=== PATIENT | male | born 1940 | race Caucasian/White ===

== ENCOUNTER 2016-10-08 18:46 | Emergency (ER) | payer OTHER ==
--- NOTE | 2016-10-08 22:42 | ED NURSING NOTES ---
Clinical Report - Nurses [facility] [address] [place] [address] 10/08/2016 18:47 [facility]: [id number] TRI[facility] Triage time 18:55. Acuity: LEVEL 3. Chief Complaint: LEFT LOWER EXTREMITY SWELLING. Location of symptoms- left ankle. Alert. No acute distress. ROSALINA COMA SCORE: Edison Coma Scale: 15- eyes open spontaneously (4); best verbal response- oriented x 4 (5); best motor response- obeys commands (6). --19:04 Gracia Cabrera R.N. 18:55 10/08/16. BP: 127/73. HR: 67. RR: 18. O2 saturation: 99% on room air. Temp: 97.8 F (oral). Pain level now: 01/07. --19:04 Gracia Cabrera R.N. Weight: 134.2 kg stated. Height/Length: 70 inches Per Patient. BMI: 42.5. --19:02 Gracia Cabrera R.N. Medications Aspirin Oral (Tablet 81 mg) 1 tablet, DAILY. Atorvastatin Calcium Oral 20 mg, daily. Carvedilol Oral (Tablet 25 mg) 2 tablets, BID. Effient Oral (Tablet 10 mg) 1 tablet, q day. Finasteride Oral 5 mg, daily. Furosemide Oral 20 mg, daily. Glipizide Oral 5 mg, daily. Lisinopril-Hydrochlorothiazide Oral (Tablet 20-25 mg) 1 tablet, twice a day. Oxycodone-Acetaminophen Oral 10/325 mg 2 tabs, 2x a day. Potassium Chloride Oral 10 meq. Tamsulosin HCl Oral (Capsule 0.4 mg) 1 capsule, daily. --18:58 Gracia Cabrera R.N. Medication/allergy information source: the patient. --19:04 Gracia Cabrera R.N. Allergies No Known Drug Allergy. --18:58 Gracia Cabrera R.N. History Arrived by private vehicle. Historian: patient. Accompanied by family. Primary physician ([facility]). No injury occurred. ( just woke up this morning and his ankle was swollen painful). SOCIAL HX: Former smoker. No alcohol use or drug use. LEARNING NEEDS ASSESSMENT: The learning needs assessment revealed no barriers. FALL RISK ASSESSMENT: Fall risk assessment completed. Risk factors identified include patient impairment of mobility. Fall interventions initiated. Patient placed in wheelchair. FUNCTIONAL ASSESSMENT: Functional assessment performed: independent with the activities of daily living. --19:04 Gracia Cabrera R.N. PROBLEMS: Angina. Diabetes Mellitus. UTI - Urinary Tract Infection. Hypovolemia. Immunizations. Dizziness. Hypoxia. Lifestyle / Substance Problems. Hypertension. COPD - Chronic Obstructive Pulmonary Disease. Dyspnea. Back Pain. Myocardial Infarction. --18:59 Gracia Cabrera R.N. ADDITIONAL SURGERIES: Cholecystectomy. Coronary Angioplasty. Gallbladder Surgery. Laparotomy. Pacemaker. Stent. --18:59 Gracia Cabrera R.N. Assessment GENERAL / NEURO / PSYCH: Alert. Oriented X 4. Appears in no acute distress. Patient appears calm and cooperative. RESPIRATORY: Respirations not labored. SKIN: Skin is warm and dry. --19:04 Gracia Cabrera R.N. Interventions ID band on patient. To waiting room. --19:04 Gracia Cabrera R.N. PHYSICAL ASSESSMENT 19:33 10/08/16. To room via wheelchair. GENERAL / NEURO / PSYCH: Oriented X 4. Alert. Appears in no acute distress. EXTREMITIES: 1+ edema of the right lower extremity involving the foot and ankle. Extremity pulses are within normal limits. Extremities exhibit normal ROM. Left foot. ( Patient states his foot was numb when he was sitting in the car.). SKIN: Skin intact. Skin is warm and dry. --19:33 Tania Espinal R.N. NURSING PROGRESS NOTES 19:34 10/08/16. Two patient identifiers checked. Call light placed in reach. Side rails up x 2. Bed placed in lowest position. Brakes of bed on. Patient ready for evaluation- chart flagged and notification provided. --19:34 Tania Espinal R.N. ( finger stick glucose 175). --19:43 Tania Espinal R.N. ( Patient's feet cleaned with warm water and washcloth.). --19:45 Tania Espinal R.N. 20:55 10/08/16. BP: 123/40 (large adult cuff) taken on the left arm, while lying. HR: 66. RR: 16. O2 saturation: 97%. Temp: 98 F. Pain level now: 04/09. Additional comments: patient states pain is 10/10 when he stands on his foot. . --21:02 Tania Espinal R.N. 21:33. The patient is resting quietly. GENERAL / NEURO / PSYCH: Alert. Oriented X 4. RESPIRATORY: No respiratory distress. SKIN: Skin is warm and dry. Call light placed in reach. ( Patient given additional blankets. Reports no needs at this time.). --21:51 Tania Espinal R.N. ( Patient reports no needs at this time. US at bedside.). --22:21 Tania Espinal R.N. 22:47 10/08/2016 Hydrocodone-APAP (Hydrocodone-Acetaminophen) PO 5/325 mg Tablets 1 tab given. Allergies verified, confirmed 5 rights and sedative warning given to the patient and patient's family. --22:52 Tania Espinal R.N. DISPOSITION / DISCHARGE 22:55. No learning barriers present. Discharge instructions provided and reviewed with the patient and family. Reviewed warnings. Reviewed medication(s). Treatments reviewed. Reviewed referrals. Follow up contact number. Patient verbalized understanding. Written instructions provided in Emirati. The patient was discharged home and accompanied by family. He left the Emergency Department ambulatory and via private vehicle. Family member driving. --23:12 Tania Espinal R.N. 22:06 10/08/16. BP: 122/49 taken on the left arm, while lying. HR: 66. RR: 18. O2 saturation: 98%. Temp: deferred. Pain level now: 05/10. --23:13 Tania Espinal R.N. Locked/Released at 10/09/2016 0:11 by Tania Espinal R.N.
--- NOTE | 2016-10-08 22:42 | ED CLINICAL REPORT ---
Clinical Report - Physicians/Mid Levels [facility] [address] [place] [address] 10/08/2016 18:47 [id number] Time Seen: 20:14; initial patient contact, initial documentation, patient care assumed. Arrived- By private vehicle. Historian- patient and daughter. HISTORY OF PRESENT ILLNESS Chief Complaint: LOWER EXTREMITY PAIN and SWELLING. Not relieved by anything- worsened by standing and walking. This started today and is still present. It was abrupt in onset. The quality is noted to be "pain". No radiation. Symptoms located in the area of the left ankle. The patient has had swelling, but not had redness. No difficulty walking. No bladder dysfunction, bowel dysfunction or motor loss. ( woke up with ankle pain and swelling, denies any injury/trauma). Patient denies an injury. Similar symptoms previously: None. Recent medical care: Not recently seen/assessed. REVIEW OF SYSTEMS No chest pain or difficulty breathing. All systems otherwise negative, except as recorded above. PAST HISTORY See nurses notes. ( PROBLEMS: Angina. Diabetes Mellitus. UTI - Urinary Tract Infection. Hypovolemia. Immunizations. Dizziness. Hypoxia. Lifestyle / Substance Problems. Hypertension. COPD - Chronic Obstructive Pulmonary Disease. Dyspnea. Back Pain. Myocardial Infarction. --18:59 Gracia Cabrera R.N. ADDITIONAL SURGERIES: Cholecystectomy. Coronary Angioplasty. Gallbladder Surgery. Laparotomy. Pacemaker. Stent. --18:59 Gracia Cabrera R.N.). SOCIAL HISTORY Former smoker. No alcohol use or drug use. No recent travel. Is a local resident. FAMILY HISTORY Negative. ADDITIONAL NOTES The nursing notes have been reviewed with agreement regarding the chief complaint, HPI, ROS, PMH and patient medications and allergies. PHYSICAL EXAM Vital Signs: 10/08/2016 18:55 BP: 127/73. HR: 67. RR: 18. O2 saturation: 99%. Temp: 97.8 F. Pain level now: 10/10. Have been reviewed as normal and appear to be correct. Appearance: Alert. Oriented X3. No acute distress. Eyes: Pupils equal, round and reactive to light. Eyes normal inspection. Neck: Normal inspection. Neck supple. CVS: Normal heart rate and rhythm. Heart sounds normal. Respiratory: No respiratory distress. Breath sounds normal. Skin: Skin intact. Skin warm and dry. Normal skin color. Normal skin turgor. Extremities: Left ankle: mild tenderness and swelling localized to the lateral malleolus. Neurovascular intact distally. No ligamentous laxity present. No joint effusion. No erythema, laceration, abrasion, ecchymosis or puncture wound. No foreign body or deformity. No limitation in ROM. Lower extremities exhibit normal ROM. No lower extremity edema. No signs of infection involving the lower extremities. No lower extremity edema. No calf tenderness. (pt's feet very dirty, caked on dirt, toenails extremely long with fungus present, foul body odor). Extremities otherwise negative. Neuro, Vascular and Tendons: Lower extremity capillary refill not prolonged. Gait: Abnormal gait. Gait not tested due to pain. Neuro: Oriented X 3. No motor deficit. No sensory deficit. LABS, X-RAYS, AND EKG X-Rays: X-rays are normal and reveal no acute disease (no acute, lots arthritis and degerative changes, calcaneous spur). Left ankle negative. The X-rays were independently viewed by me. PROGRESS AND PROCEDURES Course of Care: pt informed that he needed some good foot care, preferably by podiatry, expressed concerns over long nails and poor hygiene and concerns for dm neuropathy xrays discussed, and pt aware that I ordered US to r/o dvt. Patient and family counseled in person regarding the patient's stable condition, test results and diagnosis. Differential Diagnosis: I considered fracture, stress fracture, bone spur, multiple myeloma, gout, pseudogout, sprain, soft tissue injury, myositis, fasciitis, tendonitis, bursitis and deep venous thrombosis as a possible cause of lower extremity pain in this patient. This is a partial list of diagnoses considered. (dm neuropathy, athletes feet, onchymosis). Above considerations are based on history, physical exam, reassessment, X-Ray data and other information. Differential diagnosis was discussed with patient and patient's family. Disposition: Discharged home in good and unchanged condition. Condition: good and stable. CLINICAL IMPRESSION Acute polyarthritis of the left foot due to osteoarthritis. INSTRUCTIONS Warnings: GENERAL WARNINGS: Return or contact your physician immediately if your condition worsens or changes unexpectedly, if not improving as expected, or if other problems arise. Specifically return if problem worsens. Prescription Medications: Naproxen 500 mg tablets: take 1 orally every 12 hours as needed for pain. Dispense twenty (20). No refills. [place] 5 mg / 325 mg tablets: take 1 orally every 6 hours as needed for pain. Dispense five (5). No refill. Follow-up: Follow up with your doctor in about one week as needed. Call for an appointment. Summary of care provided to patient and family. Understanding of the discharge instructions verbalized by patient. Follow-up with: Tarun Barrow DPM, Podiatry, , [facility], [address] [place] [address], [address], [place] [address]; Varghese Nuñez DPM, Podiatry, , [address] [place] [address]. [address], [place] [address] Follow up in about three days even if well. Call for an appointment. Summary of care provided to patient and family. (Electronically signed by Neli Jarquin A.R.N.P. 10/09/2016 13:26)
--- NOTE | 2016-10-08 22:42 | ED CLINICAL REPORT ---
Clinical Report - Physicians/Mid Levels [facility] [address] [place] [address] 10/08/2016 18:47 [id number] Time Seen: 20:14; initial patient contact, initial documentation, patient care assumed. Arrived- By private vehicle. Historian- patient and daughter. HISTORY OF PRESENT ILLNESS Chief Complaint: LOWER EXTREMITY PAIN and SWELLING. Not relieved by anything- worsened by standing and walking. This started today and is still present. It was abrupt in onset. The quality is noted to be "pain". No radiation. Symptoms located in the area of the left ankle. The patient has had swelling, but not had redness. No difficulty walking. No bladder dysfunction, bowel dysfunction or motor loss. ( woke up with ankle pain and swelling, denies any injury/trauma). Patient denies an injury. Similar symptoms previously: None. Recent medical care: Not recently seen/assessed. REVIEW OF SYSTEMS No chest pain or difficulty breathing. All systems otherwise negative, except as recorded above. PAST HISTORY See nurses notes. ( PROBLEMS: Angina. Diabetes Mellitus. UTI - Urinary Tract Infection. Hypovolemia. Immunizations. Dizziness. Hypoxia. Lifestyle / Substance Problems. Hypertension. COPD - Chronic Obstructive Pulmonary Disease. Dyspnea. Back Pain. Myocardial Infarction. --18:59 Gracia Cabrera R.N. ADDITIONAL SURGERIES: Cholecystectomy. Coronary Angioplasty. Gallbladder Surgery. Laparotomy. Pacemaker. Stent. --18:59 Gracia Cabrera R.N.). SOCIAL HISTORY Former smoker. No alcohol use or drug use. No recent travel. Is a local resident. FAMILY HISTORY Negative. ADDITIONAL NOTES The nursing notes have been reviewed with agreement regarding the chief complaint, HPI, ROS, PMH and patient medications and allergies. PHYSICAL EXAM Vital Signs: 10/08/2016 18:55 BP: 127/73. HR: 67. RR: 18. O2 saturation: 99%. Temp: 97.8 F. Pain level now: 10/10. Have been reviewed as normal and appear to be correct. Appearance: Alert. Oriented X3. No acute distress. Eyes: Pupils equal, round and reactive to light. Eyes normal inspection. Neck: Normal inspection. Neck supple. CVS: Normal heart rate and rhythm. Heart sounds normal. Respiratory: No respiratory distress. Breath sounds normal. Skin: Skin intact. Skin warm and dry. Normal skin color. Normal skin turgor. Extremities: Left ankle: mild tenderness and swelling localized to the lateral malleolus. Neurovascular intact distally. No ligamentous laxity present. No joint effusion. No erythema, laceration, abrasion, ecchymosis or puncture wound. No foreign body or deformity. No limitation in ROM. Lower extremities exhibit normal ROM. No lower extremity edema. No signs of infection involving the lower extremities. No lower extremity edema. No calf tenderness. (pt's feet very dirty, caked on dirt, toenails extremely long with fungus present, foul body odor). Extremities otherwise negative. Neuro, Vascular and Tendons: Lower extremity capillary refill not prolonged. Gait: Abnormal gait. Gait not tested due to pain. Neuro: Oriented X 3. No motor deficit. No sensory deficit. LABS, X-RAYS, AND EKG X-Rays: X-rays are normal and reveal no acute disease (no acute, lots arthritis and degerative changes, calcaneous spur). Left ankle negative. The X-rays were independently viewed by me. PROGRESS AND PROCEDURES Course of Care: pt informed that he needed some good foot care, preferably by podiatry, expressed concerns over long nails and poor hygiene and concerns for dm neuropathy xrays discussed, and pt aware that I ordered US to r/o dvt. Patient and family counseled in person regarding the patient's stable condition, test results and diagnosis. Differential Diagnosis: I considered fracture, stress fracture, bone spur, multiple myeloma, gout, pseudogout, sprain, soft tissue injury, myositis, fasciitis, tendonitis, bursitis and deep venous thrombosis as a possible cause of lower extremity pain in this patient. This is a partial list of diagnoses considered. (dm neuropathy, athletes feet, onchymosis). Above considerations are based on history, physical exam, reassessment, X-Ray data and other information. Differential diagnosis was discussed with patient and patient's family. Disposition: Discharged home in good and unchanged condition. Condition: good and stable. CLINICAL IMPRESSION Acute polyarthritis of the left foot due to osteoarthritis. INSTRUCTIONS Warnings: GENERAL WARNINGS: Return or contact your physician immediately if your condition worsens or changes unexpectedly, if not improving as expected, or if other problems arise. Specifically return if problem worsens. Prescription Medications: Naproxen 500 mg tablets: take 1 orally every 12 hours as needed for pain. Dispense twenty (20). No refills. [place] 5 mg / 325 mg tablets: take 1 orally every 6 hours as needed for pain. Dispense five (5). No refill. Follow-up: Follow up with your doctor in about one week as needed. Call for an appointment. Summary of care provided to patient and family. Understanding of the discharge instructions verbalized by patient. Follow-up with: Tarun Barrow DPM, Podiatry, , [facility], [address] [place] [address], [address], [place] [address]; Varghese Nuñez DPM, Podiatry, , [address] [place] [address]. [address], [place] [address] Follow up in about three days even if well. Call for an appointment. Summary of care provided to patient and family. (Electronically signed by Neli Jarquin A.R.N.P. 10/09/2016 13:26)
--- NOTE | 2016-10-08 22:42 | ED ORDER SUMMARY ---
..... Patient: MELQUIADES PERALES OrderSheet [facility] VisitID: [id number] [place] [address] 75y, M Registration Date/Time: 10/08/2016 ORDER SHEET Weight: 134.2 kg (stated) Allergies: No Known Drug Allergy GENERAL ORDERS: Ankle 3 or 4V Left Urgent (20:52 10/08/2016 HBivens A.R.N.P.) (Ack 20:53 CHagerty ER [place]) (21:02 RMarsden R.N.) US Venous Left Urgent (21:18 10/08/2016 HBivens A.R.N.P.) (Ack 21:22 CHagerty ER [place]) (22:38 RMarsden R.N.) Crutches (22:52 10/08/2016 RMarsden R.N. verbal order read back to Estrada Dominguez) (Ack 22:52 RMarsden R.N.) (23:11 RMarsden R.N.) MEDICATION ORDERS: Hydrocodone-APAP PO 5/325 mg (NOW, HIGH ALERT MEDICATION) (22:44 10/08/2016 HBivens A.R.N.P.) (22:52 RMarsden R.N.) IV FLUIDS: ORDER SHEET NOTES: [Electronically signed by Tania Espinal R.N. (00:11 10/09/2016)] [Electronically signed by Neli JarquinRNikkyN.PNikky (13:26 10/09/2016)] [Electronically locked/signed by Tania Espinal R.N. (00:11 10/09/2016)]
--- NOTE | 2016-10-08 22:42 | ED ORDER SUMMARY ---
..... Patient: MELQUIADES PERALES OrderSheet [facility] VisitID: [id number] [place] [address] 75y, M Registration Date/Time: 10/08/2016 ORDER SHEET Weight: 134.2 kg (stated) Allergies: No Known Drug Allergy GENERAL ORDERS: Ankle 3 or 4V Left Urgent (20:52 10/08/2016 HBivens A.R.N.P.) (Ack 20:53 CHagerty ER [employer] Specialist) (21:02 RMarsden R.N.) US Venous Left Urgent (21:18 10/08/2016 HBivens A.R.N.P.) (Ack 21:22 CHagerty ER [employer] Specialist) (22:38 RMarsden R.N.) Crutches (22:52 10/08/2016 RMarsden R.N. verbal order read back to Estrada Dominguez) (Ack 22:52 RMarsden R.N.) (23:11 RMarsden R.N.) MEDICATION ORDERS: Hydrocodone-APAP PO 5/325 mg (NOW, HIGH ALERT MEDICATION) (22:44 10/08/2016 HBivens A.R.N.P.) (22:52 RMarsden R.N.) IV FLUIDS: ORDER SHEET NOTES: [Electronically signed by Tania Espinal R.N. (00:11 10/09/2016)] [Electronically signed by Neli JarquinRNikkyN.PNikky (13:26 10/09/2016)] [Electronically locked/signed by Tania Espinal R.N. (00:11 10/09/2016)]
--- NOTE | 2016-10-09 00:54 | DIAGNOSTIC IMAGING REPORT ---
PROCEDURE: US VENOUS - LEFT EXT INDICATION: SWELLING TECHNIQUE: Color Doppler duplex imaging of the deep and superficial venous system without and with compression. COMPARISON: None. FINDINGS: Deep and superficial venous system of the left lower extremity is within normal limits. There is no evidence of deep vein thrombosis or superficial thrombophlebitis. IMPRESSION: 1. Negative venous ultrasound of the left lower extremity.
--- NOTE | 2016-10-09 01:00 | DIAGNOSTIC IMAGING REPORT ---
PROCEDURE: XR ANKLE 3 OR 4 VIEWS - LEFT INDICATION: PAIN TECHNIQUE: Four views. COMPARISON: None. FINDINGS: Moderate to severe degenerative change of the left ankle mortise joint with peripheral osteophytes. Mild to moderate joint space narrowing. There are large plantar and Achilles spurs of the left os calcis (most likely incidental finding). No evidence of an acute process or fracture. IMPRESSION: 1. 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 2. Large Achilles and plantar spurs of the left calcis. 3. No evidence of acute process or fracture.
--- NOTE | 2016-10-09 13:27 | ED MED RECONCILIATION SUMMARY ---
Patient: MELQUIADES PERALES Medication Reconciliation Report [facility] VisitID: [id number] [address] [place] [address] 75y, M Registration Date/Time: 10/08/2016 Weight: 134.2 kg Height/Length: 70 in. BMI: 42.5 ALLERGIES: No Known Drug Allergy The patient's Home Medications are listed below: THE FOLLOWING MEDICATIONS NEED TO BE RECONCILED: Aspirin Oral (81 mg) 1 tablet, DAILY Atorvastatin Calcium Oral 20 mg, daily Carvedilol Oral (25 mg) 2 tablets, BID Effient Oral (10 mg) 1 tablet, q day Finasteride Oral 5 mg, daily Furosemide Oral 20 mg, daily Glipizide Oral 5 mg, daily Lisinopril-Hydrochlorothiazide Oral (20-25 mg) 1 tablet, twice a day Oxycodone-Acetaminophen Oral 10/325 mg 2 tabs, 2x a day Potassium Chloride Oral 10 meq Tamsulosin HCl Oral (0.4 mg) 1 capsule, daily The source(s) of the original Home Medication information: patient The following Medications were given to the patient in the Emergency Department: Hydrocodone-APAP [PO] PO 1 tab, administered: 10/08/2016 10:47:00 PM The following Medications were prescribed to the patient: Naproxen 500 mg tablets: take 1 orally every 12 hours as needed for pain. Dispense twenty (20). No refills. -- Neli Jarquin A.R.N.P. [place] 5 mg / 325 mg tablets: take 1 orally every 6 hours as needed for pain. Dispense five (5). No refill. -- Neli Jarquin A.R.N.P.
--- NOTE | 2016-10-09 13:27 | ED DISCHARGE INSTRUCTIONS ---
Patient: MELQUIADES PERALES General Instructions 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 INSTRUCTIONS Warnings: GENERAL WARNINGS: Return or contact your physician immediately if your condition worsens or changes unexpectedly, if not improving as expected, or if other problems arise. Specifically return if problem worsens. Prescription Medications: Naproxen 500 mg tablets: take 1 orally every 12 hours as needed for pain. Dispense twenty (20). No refills. [place]elwood 5 mg / 325 mg tablets: take 1 orally every 6 hours as needed for pain. Dispense five (5). No refill. Follow-up: Follow up with your doctor in about one week as needed. Call for an appointment. Summary of care provided to patient and family. Understanding of the discharge instructions verbalized by patient. Follow-up with: Tarun Barrow DPM, Podiatry, , [facility], [address] [place] [address], [address], [place] [address]; Varghese Nuñez DPM, Podiatry, [phone], [address], [place] [address] Follow up in about three days even if well. Call for an appointment. Summary of care provided to patient and family. ADDITIONAL INFORMATION Osteoarthritis Osteoarthritis (also called Degenerative Joint Disease) is the most common form of arthritis in adults over 50. It is not the same as Rheumatoid Arthritis. The exact cause is not known but may be related to excess wear and tear on the joint over a long period of time. Prior injury to that joint, or repeated stress on a joint can also cause this type of arthritis. Osteoarthritis most often affects the hands, knees, spine and hips (in that order). The most common symptoms are joint stiffness, pain and swelling. Home Care: When a joint is more sore than usual, rest that joint for a day or two. Heat is very helpful. This can be provided by taking hot baths, applying a heating pad for up to 30 minutes at a time. Because symptoms are usually worse in the morning, many patients like to take a hot bath just after awakening to relax the muscle and soothe the joints. Exercise is the most important part of home treatment for osteoarthritis. This prevents the muscles and ligaments around the joint from becoming weak and helps maintain the full range of joint motion. This limits further damage to the joint. If you are overweight, this puts a lot of extra strain on weight-bearing joints of the lower back, hips, knees, feet and ankles. Losing weight will improve your arthritis symptoms in these joints. Talk to your doctor about a safe and effective weight loss program for yourself. Anti-inflammatory medicine such as ibuprofen (Advil, Motrin) or naproxen (Aleve) is often used to treat this condition. If this alone is not helping, your doctor may prescribe a stronger medicine. If narcotic pain medicines have been prescribed, they should be used in addition to anti-inflammatory drugs and only for severe pain. Follow Up with your doctor as advised by our staff. Get Prompt Medical Attention if any of the following occur: Redness or swelling of a painful joint Fever of 100.4F (38C) or higher, or as directed by your healthcare provider Worsening joint pain Arthralgia Arthralgia is the term for pain in or around the joint. It is not a disease but a symptom. This may involve one or more joints. Sometimes arthralgias move from joint to joint. There are many causes for joint pain. These include: Injury Osteoarthritis (from wearing out of the joint surface) Rheumatoid arthritis (an autoimmune disease) Gout (inflammation of the joint due to crystals in the joint fluid) Infection inside the joint Bursitis (inflammation of the fluid-filled sacs around the joint) Lupus and other collagen-vascular disease Home Care: Rest the involved joint(s) until your symptoms improve. You may use acetaminophen (Tylenol) or ibuprofen (Motrin, Advil) to control pain, unless another pain medicine was prescribed. [NOTE: If you have chronic liver or kidney disease or ever had a stomach ulcer or GI bleeding, talk with your doctor before using these medicines.] Follow Up with your doctor or as advised by our staff. [NOTE: If you had an X-ray it will be reviewed by a specialist. You will be notified of any new findings that may affect your care.] Return Promptly or contact your doctor if any of the following occurs: Pain increases Pain moves to other joints New rash appears Fever of 100.4F (38C) or higher, or as directed by your healthcare provider Naproxen Sodium Oral tablet What is this medicine? NAPROXEN (na PROX en) is a non-steroidal anti-inflammatory drug (NSAID). It is used to reduce swelling and to treat pain. This medicine may be used for dental pain, headache, or painful monthly periods. It is also used for painful joint and muscular problems such as arthritis, tendinitis, bursitis, and gout. How should I use this medicine? Take this medicine by mouth with a glass of water. Follow the directions on the prescription label. Take it with food if your stomach gets upset. Try to not lie down for at least 10 minutes after you take it. Take your medicine at regular intervals. Do not take your medicine more often than directed. Long-term, continuous use may increase the risk of heart attack or stroke. A special MedGuide will be given to you by the pharmacist with each prescription and refill. Be sure to read this information carefully each time. Talk to your gas distribution plant operator regarding the use of this medicine in children. Special care may be needed. What side effects may I notice from receiving this medicine? Side effects that you should report to your doctor or health reservoir caretaker as soon as possible: black or bloody stools, blood in the urine or vomit blurred vision chest pain difficulty breathing or wheezing nausea or vomiting severe stomach pain skin rash, skin redness, blistering or peeling skin, hives, or itching slurred speech or weakness on one side of the body swelling of eyelids, throat, lips unexplained weight gain or swelling unusually weak or tired yellowing of eyes or skin Side effects that usually do not require medical attention (report to your doctor or health reservoir caretaker if they continue or are bothersome): constipation headache heartburn What may interact with this medicine? alcohol aspirin cidofovir diuretics lithium methotrexate other drugs for inflammation like ketorolac or prednisone pemetrexed probenecid warfarin What if I miss a dose? If you miss a dose, take it as soon as you can. If it is almost time for your next dose, take only that dose. Do not take double or extra doses. Where should I keep my medicine? Keep out of the reach of children. Store at room temperature between 15 and 30 degrees C (59 and 86 degrees F). Keep container tightly closed. Throw away any unused medicine after the expiration date. What should I tell my health care provider before I take this medicine? They need to know if you have any of these conditions: asthma cigarette smoker drink more than 3 alcohol containing drinks a day heart disease or circulation problems such as heart failure or leg edema (fluid retention) high blood pressure kidney disease liver disease stomach bleeding or ulcers an unusual or allergic reaction to naproxen, aspirin, other NSAIDs, other medicines, foods, dyes, or preservatives or trying to get breast-feeding What should I watch for while using this medicine? Tell your doctor or health reservoir caretaker if your pain does not get better. Talk to your doctor before taking another medicine for pain. Do not treat yourself. This medicine does not prevent heart attack or stroke. In fact, this medicine may increase the chance of a heart attack or stroke. The chance may increase with longer use of this medicine and in people who have heart disease. If you take aspirin to prevent heart attack or stroke, talk with your doctor or health reservoir caretaker. Do not take other medicines that contain aspirin, ibuprofen, or naproxen with this medicine. Side effects such as stomach upset, nausea, or ulcers may be more likely to occur. Many medicines available without a prescription should not be taken with this medicine. This medicine can cause ulcers and bleeding in the stomach and intestines at any time during treatment. Do not smoke cigarettes or drink alcohol. These increase irritation to your stomach and can make it more susceptible to damage from this medicine. Ulcers and bleeding can happen without warning symptoms and can cause . You may get drowsy or dizzy. Do not drive, use machinery, or do anything that needs mental alertness until you know how this medicine affects you. Do not stand or sit up quickly, especially if you are an older patient. This reduces the risk of dizzy or fainting spells. This medicine can cause you to bleed more easily. Try to avoid damage to your teeth and gums when you brush or floss your teeth. Hydrocodone Bitartrate, Acetaminophen Oral tablet What is this medicine? ACETAMINOPHEN; HYDROCODONE (a set a BRUNO theron fen; zander droe KOE done) is a pain reliever. It is used to treat mild to moderate pain. How should I use this medicine? Take this medicine by mouth. Swallow it with a full glass of water. Follow the directions on the prescription label. If the medicine upsets your stomach, take the medicine with food or milk. Do not take more than you are told to take. Talk to your gas distribution plant operator regarding the use of this medicine in children. This medicine is not approved for use in children. What side effects may I notice from receiving this medicine? Side effects that you should report to your doctor or health reservoir caretaker as soon as possible: allergic reactions like skin rash, itching or hives, swelling of the face, lips, or tongue breathing problems confusion feeling faint or lightheaded, falls stomach pain yellowing of the eyes or skin Side effects that usually do not require medical attention (report to your doctor or health reservoir caretaker if they continue or are bothersome): nausea, vomiting stomach upset What may interact with this medicine? alcohol antihistamines isoniazid medicines for depression, anxiety, or psychotic disturbances medicines for sleep muscle relaxants naltrexone narcotic medicines (opiates) for pain phenobarbital ritonavir tramadol What if I miss a dose? If you miss a dose, take it as soon as you can. If it is almost time for your next dose, take only that dose. Do not take double or extra doses. Where should I keep my medicine? Keep out of the reach of children. This medicine can be abused. Keep your medicine in a safe place to protect it from theft. Do not share this medicine with anyone. Selling or giving away this medicine is dangerous and against the law. Store at room temperature between 15 and 30 degrees C (59 and 86 degrees F). Protect from light. Keep container tightly closed. Throw away any unused medicine after the expiration date. Discard unused medicine and used packaging carefully. Pets and children can be harmed if they find used or lost packages. What should I tell my health care provider before I take this medicine? They need to know if you have any of these conditions: brain tumor Crohn's disease, inflammatory bowel disease, or ulcerative colitis drink more than 3 alcohol-containing drinks per day drug abuse or addiction head injury heart or circulation problems kidney disease or problems going to the bathroom liver disease lung disease, asthma, or breathing problems an unusual or allergic reaction to acetaminophen, hydrocodone, other opioid analgesics, other medicines, foods, dyes, or preservatives or trying to get breast-feeding What should I watch for while using this medicine? Tell your doctor or health reservoir caretaker if your pain does not go away, if it gets worse, or if you have new or a different type of pain. You may develop tolerance to the medicine. Tolerance means that you will need a higher dose of the medicine for pain relief. Tolerance is normal and is expected if you take the medicine for a long time. Do not suddenly stop taking your medicine because you may develop a severe reaction. Your body becomes used to the medicine. This does NOT mean you are addicted. Addiction is a behavior related to getting and using a drug for a non-medical reason. If you have pain, you have a medical reason to take pain medicine. Your doctor will tell you how much medicine to take. If your doctor wants you to stop the medicine, the dose will be slowly lowered over time to avoid any side effects. You may get drowsy or dizzy when you first start taking the medicine or change doses. Do not drive, use machinery, or do anything that may be dangerous until you know how the medicine affects you. Stand or sit up slowly. There are different types of narcotic medicines (opiates) for pain. If you take more than one type at the same time, you may have more side effects. Give your health care provider a list of all medicines you use. Your doctor will tell you how much medicine to take. Do not take more medicine than directed. Call emergency for help if you have problems breathing. The medicine will cause constipation. Try to have a bowel movement at least every 2 to 3 days. If you do not have a bowel movement for 3 days, call your doctor or health reservoir caretaker. Too much acetaminophen can be very dangerous. Do not take Tylenol (acetaminophen) or medicines that contain acetaminophen with this medicine. Many non-prescription medicines contain acetaminophen. Always read the labels carefully. You have been given the following additional information: Osteoarthritis Arthralgia Naproxen Sodium Oral tablet Hydrocodone Bitartrate, Acetaminophen Oral tablet (Electronically signed by Neli Jarquin A.R.N.P. 10/09/2016 13:26)
--- NOTE | 2016-10-09 13:27 | ED DISCHARGE INSTRUCTIONS ---
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 INSTRUCTIONS Warnings: GENERAL WARNINGS: Return or contact your physician immediately if your condition worsens or changes unexpectedly, if not improving as expected, or if other problems arise. Specifically return if problem worsens. Prescription Medications: Naproxen 500 mg tablets: take 1 orally every 12 hours as needed for pain. Dispense twenty (20). No refills. [place] 5 mg / 325 mg tablets: take 1 orally every 6 hours as needed for pain. Dispense five (5). No refill. Follow-up: Follow up with your doctor in about one week as needed. Call for an appointment. Summary of care provided to patient and family. Understanding of the discharge instructions verbalized by patient. Follow-up with: Tarun Barrow DPM, Podiatry, , [facility], [address] [place] [address], [address], [place] [address]; Varghese Nuñez DPM, Podiatry, [phone], [place] [address] Follow up in about three days even if well. Call for an appointment. Summary of care provided to patient and family. ADDITIONAL INFORMATION Osteoarthritis Osteoarthritis (also called Degenerative Joint Disease) is the most common form of arthritis in adults over 50. It is not the same as Rheumatoid Arthritis. The exact cause is not known but may be related to excess wear and tear on the joint over a long period of time. Prior injury to that joint, or repeated stress on a joint can also cause this type of arthritis. Osteoarthritis most often affects the hands, knees, spine and hips (in that order). The most common symptoms are joint stiffness, pain and swelling. Home Care: When a joint is more sore than usual, rest that joint for a day or two. Heat is very helpful. This can be provided by taking hot baths, applying a heating pad for up to 30 minutes at a time. Because symptoms are usually worse in the morning, many patients like to take a hot bath just after awakening to relax the muscle and soothe the joints. Exercise is the most important part of home treatment for osteoarthritis. This prevents the muscles and ligaments around the joint from becoming weak and helps maintain the full range of joint motion. This limits further damage to the joint. If you are overweight, this puts a lot of extra strain on weight-bearing joints of the lower back, hips, knees, feet and ankles. Losing weight will improve your arthritis symptoms in these joints. Talk to your doctor about a safe and effective weight loss program for yourself. Anti-inflammatory medicine such as ibuprofen (Advil, Motrin) or naproxen (Aleve) is often used to treat this condition. If this alone is not helping, your doctor may prescribe a stronger medicine. If narcotic pain medicines have been prescribed, they should be used in addition to anti-inflammatory drugs and only for severe pain. Follow Up with your doctor as advised by our staff. Get Prompt Medical Attention if any of the following occur: Redness or swelling of a painful joint Fever of 100.4F (38C) or higher, or as directed by your healthcare provider Worsening joint pain Arthralgia Arthralgia is the term for pain in or around the joint. It is not a disease but a symptom. This may involve one or more joints. Sometimes arthralgias move from joint to joint. There are many causes for joint pain. These include: Injury Osteoarthritis (from wearing out of the joint surface) Rheumatoid arthritis (an autoimmune disease) Gout (inflammation of the joint due to crystals in the joint fluid) Infection inside the joint Bursitis (inflammation of the fluid-filled sacs around the joint) Lupus and other collagen-vascular disease Home Care: Rest the involved joint(s) until your symptoms improve. You may use acetaminophen (Tylenol) or ibuprofen (Motrin, Advil) to control pain, unless another pain medicine was prescribed. [NOTE: If you have chronic liver or kidney disease or ever had a stomach ulcer or GI bleeding, talk with your doctor before using these medicines.] Follow Up with your doctor or as advised by our staff. [NOTE: If you had an X-ray it will be reviewed by a specialist. You will be notified of any new findings that may affect your care.] Return Promptly or contact your doctor if any of the following occurs: Pain increases Pain moves to other joints New rash appears Fever of 100.4F (38C) or higher, or as directed by your healthcare provider Naproxen Sodium Oral tablet What is this medicine? NAPROXEN (na PROX en) is a non-steroidal anti-inflammatory drug (NSAID). It is used to reduce swelling and to treat pain. This medicine may be used for dental pain, headache, or painful monthly periods. It is also used for painful joint and muscular problems such as arthritis, tendinitis, bursitis, and gout. How should I use this medicine? Take this medicine by mouth with a glass of water. Follow the directions on the prescription label. Take it with food if your stomach gets upset. Try to not lie down for at least 10 minutes after you take it. Take your medicine at regular intervals. Do not take your medicine more often than directed. Long-term, continuous use may increase the risk of heart attack or stroke. A special MedGuide will be given to you by the pharmacist with each prescription and refill. Be sure to read this information carefully each time. Talk to your brake operator heavy duty regarding the use of this medicine in children. Special care may be needed. What side effects may I notice from receiving this medicine? Side effects that you should report to your doctor or health pet care attendant as soon as possible: black or bloody stools, blood in the urine or vomit blurred vision chest pain difficulty breathing or wheezing nausea or vomiting severe stomach pain skin rash, skin redness, blistering or peeling skin, hives, or itching slurred speech or weakness on one side of the body swelling of eyelids, throat, lips unexplained weight gain or swelling unusually weak or tired yellowing of eyes or skin Side effects that usually do not require medical attention (report to your doctor or health pet care attendant if they continue or are bothersome): constipation headache heartburn What may interact with this medicine? alcohol aspirin cidofovir diuretics lithium methotrexate other drugs for inflammation like ketorolac or prednisone pemetrexed probenecid warfarin What if I miss a dose? If you miss a dose, take it as soon as you can. If it is almost time for your next dose, take only that dose. Do not take double or extra doses. Where should I keep my medicine? Keep out of the reach of children. Store at room temperature between 15 and 30 degrees C (59 and 86 degrees F). Keep container tightly closed. Throw away any unused medicine after the expiration date. What should I tell my health care provider before I take this medicine? They need to know if you have any of these conditions: asthma cigarette smoker drink more than 3 alcohol containing drinks a day heart disease or circulation problems such as heart failure or leg edema (fluid retention) high blood pressure kidney disease liver disease stomach bleeding or ulcers an unusual or allergic reaction to naproxen, aspirin, other NSAIDs, other medicines, foods, dyes, or preservatives or trying to get breast-feeding What should I watch for while using this medicine? Tell your doctor or health pet care attendant if your pain does not get better. Talk to your doctor before taking another medicine for pain. Do not treat yourself. This medicine does not prevent heart attack or stroke. In fact, this medicine may increase the chance of a heart attack or stroke. The chance may increase with longer use of this medicine and in people who have heart disease. If you take aspirin to prevent heart attack or stroke, talk with your doctor or health pet care attendant. Do not take other medicines that contain aspirin, ibuprofen, or naproxen with this medicine. Side effects such as stomach upset, nausea, or ulcers may be more likely to occur. Many medicines available without a prescription should not be taken with this medicine. This medicine can cause ulcers and bleeding in the stomach and intestines at any time during treatment. Do not smoke cigarettes or drink alcohol. These increase irritation to your stomach and can make it more susceptible to damage from this medicine. Ulcers and bleeding can happen without warning symptoms and can cause . You may get drowsy or dizzy. Do not drive, use machinery, or do anything that needs mental alertness until you know how this medicine affects you. Do not stand or sit up quickly, especially if you are an older patient. This reduces the risk of dizzy or fainting spells. This medicine can cause you to bleed more easily. Try to avoid damage to your teeth and gums when you brush or floss your teeth. Hydrocodone Bitartrate, Acetaminophen Oral tablet What is this medicine? ACETAMINOPHEN; HYDROCODONE (a set a BRUNO theron fen; zander droe KOE done) is a pain reliever. It is used to treat mild to moderate pain. How should I use this medicine? Take this medicine by mouth. Swallow it with a full glass of water. Follow the directions on the prescription label. If the medicine upsets your stomach, take the medicine with food or milk. Do not take more than you are told to take. Talk to your brake operator heavy duty regarding the use of this medicine in children. This medicine is not approved for use in children. What side effects may I notice from receiving this medicine? Side effects that you should report to your doctor or health pet care attendant as soon as possible: allergic reactions like skin rash, itching or hives, swelling of the face, lips, or tongue breathing problems confusion feeling faint or lightheaded, falls stomach pain yellowing of the eyes or skin Side effects that usually do not require medical attention (report to your doctor or health pet care attendant if they continue or are bothersome): nausea, vomiting stomach upset What may interact with this medicine? alcohol antihistamines isoniazid medicines for depression, anxiety, or psychotic disturbances medicines for sleep muscle relaxants naltrexone narcotic medicines (opiates) for pain phenobarbital ritonavir tramadol What if I miss a dose? If you miss a dose, take it as soon as you can. If it is almost time for your next dose, take only that dose. Do not take double or extra doses. Where should I keep my medicine? Keep out of the reach of children. This medicine can be abused. Keep your medicine in a safe place to protect it from theft. Do not share this medicine with anyone. Selling or giving away this medicine is dangerous and against the law. Store at room temperature between 15 and 30 degrees C (59 and 86 degrees F). Protect from light. Keep container tightly closed. Throw away any unused medicine after the expiration date. Discard unused medicine and used packaging carefully. Pets and children can be harmed if they find used or lost packages. What should I tell my health care provider before I take this medicine? They need to know if you have any of these conditions: brain tumor Crohn's disease, inflammatory bowel disease, or ulcerative colitis drink more than 3 alcohol-containing drinks per day drug abuse or addiction head injury heart or circulation problems kidney disease or problems going to the bathroom liver disease lung disease, asthma, or breathing problems an unusual or allergic reaction to acetaminophen, hydrocodone, other opioid analgesics, other medicines, foods, dyes, or preservatives or trying to get breast-feeding What should I watch for while using this medicine? Tell your doctor or health pet care attendant if your pain does not go away, if it gets worse, or if you have new or a different type of pain. You may develop tolerance to the medicine. Tolerance means that you will need a higher dose of the medicine for pain relief. Tolerance is normal and is expected if you take the medicine for a long time. Do not suddenly stop taking your medicine because you may develop a severe reaction. Your body becomes used to the medicine. This does NOT mean you are addicted. Addiction is a behavior related to getting and using a drug for a non-medical reason. If you have pain, you have a medical reason to take pain medicine. Your doctor will tell you how much medicine to take. If your doctor wants you to stop the medicine, the dose will be slowly lowered over time to avoid any side effects. You may get drowsy or dizzy when you first start taking the medicine or change doses. Do not drive, use machinery, or do anything that may be dangerous until you know how the medicine affects you. Stand or sit up slowly. There are different types of narcotic medicines (opiates) for pain. If you take more than one type at the same time, you may have more side effects. Give your health care provider a list of all medicines you use. Your doctor will tell you how much medicine to take. Do not take more medicine than directed. Call emergency for help if you have problems breathing. The medicine will cause constipation. Try to have a bowel movement at least every 2 to 3 days. If you do not have a bowel movement for 3 days, call your doctor or health pet care attendant. Too much acetaminophen can be very dangerous. Do not take Tylenol (acetaminophen) or medicines that contain acetaminophen with this medicine. Many non-prescription medicines contain acetaminophen. Always read the labels carefully. You have been given the following additional information: Osteoarthritis Arthralgia Naproxen Sodium Oral tablet Hydrocodone Bitartrate, Acetaminophen Oral tablet (Electronically signed by Neli Jarquin A.R.N.P. 10/09/2016 13:26)
--- NOTE | 2016-10-09 13:27 | ED MAR SUMMARY ---
..... Medication Administration Record [facility] [address] [place] [address] Patient: MELQUIADES PERALES Visit ID: [id number] 75y, M Weight: 134.2 kg Height/Length: 70 in BMI: 42.5 ALLERGIES: No Known Drug Allergy Given 22:47 10/08/2016 Tania Espinal R.N. Medication Administered: HYDROCODONE-APAP [PO] (HYDROCODONE-ACETAMINOPHEN), Dose: 1 tab 5/325 mg Tablets PO. Medication Ordered: Hydrocodone-APAP PO 5/325 mg (NOW, HIGH ALERT MEDICATION).
--- NOTE | 2016-10-09 13:27 | ED MED RECONCILIATION SUMMARY ---
Patient: MELQUIADES PERALES Medication Reconciliation Report [facility] VisitID: [id number] [address] [place] [address] 75y, M Registration Date/Time: 10/08/2016 Weight: 134.2 kg Height/Length: 70 in. BMI: 42.5 ALLERGIES: No Known Drug Allergy The patient's Home Medications are listed below: THE FOLLOWING MEDICATIONS NEED TO BE RECONCILED: Aspirin Oral (81 mg) 1 tablet, DAILY Atorvastatin Calcium Oral 20 mg, daily Carvedilol Oral (25 mg) 2 tablets, BID Effient Oral (10 mg) 1 tablet, q day Finasteride Oral 5 mg, daily Furosemide Oral 20 mg, daily Glipizide Oral 5 mg, daily Lisinopril-Hydrochlorothiazide Oral (20-25 mg) 1 tablet, twice a day Oxycodone-Acetaminophen Oral 10/325 mg 2 tabs, 2x a day Potassium Chloride Oral 10 meq Tamsulosin HCl Oral (0.4 mg) 1 capsule, daily The source(s) of the original Home Medication information: patient The following Medications were given to the patient in the Emergency Department: Hydrocodone-APAP [PO] PO 1 tab, administered: 10/08/2016 10:47:00 PM The following Medications were prescribed to the patient: Naproxen 500 mg tablets: take 1 orally every 12 hours as needed for pain. Dispense twenty (20). No refills. -- Neli Jarquin A.R.N.P. [place] 5 mg / 325 mg tablets: take 1 orally every 6 hours as needed for pain. Dispense five (5). No refill. -- Neli Jarquin A.R.N.P.
--- NOTE | 2016-10-09 13:27 | ED MAR SUMMARY ---
..... Medication Administration Record [facility] [address] [place] [address] Patient: MELQUIADES PERALES Visit ID: [id number] 75y, M Weight: 134.2 kg Height/Length: 70 in BMI: 42.5 ALLERGIES: No Known Drug Allergy Given 22:47 10/08/2016 Tania Espinal R.N. Medication Administered: HYDROCODONE-APAP [PO] (HYDROCODONE-ACETAMINOPHEN), Dose: 1 tab 5/325 mg Tablets PO. Medication Ordered: Hydrocodone-APAP PO 5/325 mg (NOW, HIGH ALERT MEDICATION).
== END 2016-10-08 22:55 | disposition home or self-care (01) ==
LOC: ED SRH 18:46
DX: M19.072 Primary osteoarthritis, left ankle and foot (principal); E11.9 Type 2 diabetes mellitus without complications; I10 Essential (primary) hypertension; J44.9 Chronic obstructive pulmonary disease, unspecified; I25.2 Old myocardial infarction; Z79.82 Long term (current) use of aspirin; Z79.899 Other long term (current) drug therapy; Z87.891 Personal history of nicotine dependence